=== PATIENT | male | born 1975 | race Caucasian/White ===

== ENCOUNTER 2016-06-14 19:41 | Emergency (ER) | payer BC ==
[2016-06-14 19:54] VITALS: BP 104/77; PULSE 75; RESP 16; TEMP 98.1; O2SAT 96
[2016-06-14] MEDS ORDERED: IBUPROFEN 600 MG TAB PO ONE (20:52)
[2016-06-14] MEDS ORDERED: LET GEL TOPICAL 1 EA SYR TP ONE (20:55)
--- NOTE | 2016-06-14 21:46 | UCPHY ---
H & P Time Seen by Provider: 06/14/16 20:09 Patient Type: Established HPI/ROS: Shortly prior to arrival this patient sustained a finger to his left thumb tip while cutting CABG at home with a skin tip avulsion. He reports a skin flap is "barely hanging on". He reports moderate burning pain from this with moderate study bleeding that did not stop with direct pressure prompting his visit for evaluation. ROS: No difficulty moving the affected thumb. No other injuries associated with this. 5 point ROS is otherwise negative. Smoking Status: Never smoked Physical Exam: Physical Exam Vital signs are normal. General: No acute distress Cardiac: Brisk capillary refill is intact throughout. Skin: No rash or pallor. Extremities: Atraumatic normal except for his left thumb Left thumb: Patient has a 1 cm thumb tip skin avulsion-partial thickness with steady [id number] bleeding with a nonviable skin flap. No proximal wounds. No bony tenderness. No foreign bodies. Neuro: Alert with no sensorimotor deficits in the affected thumb Constitutional: Initial Vital Signs Temperature (C) 36.7 C 06/14/16 19:51 Heart Rate 75 06/14/16 19:51 Respiratory Rate 16 06/14/16 19:51 Blood Pressure 104/77 06/14/16 19:51 O2 Sat (%) 96 06/14/16 19:51 O2 Delivery Mode Room Air Allergies/Adverse Reactions: bacitracin [From Neosporin ([id number])] Allergy (Unverified 06/14/16 21:05) Home Medications: Medication Instructions Recorded NK [No Known Home Meds] 06/14/16 MDM/Departure - MDM Medications Given: Discontinued Medications Ibuprofen (Motrin) 600 mg PO EDNOW ONE Stop: 06/14/16 20:53 Last Admin: 06/14/16 21:03 Dose: 600 mg Tetracaine/Epinephrine/Lidocaine (Let Gel Topical) 1 ea TP EDNOW ONE Stop: 06/14/16 20:56 Last Admin: 06/14/16 21:03 Dose: 1 ea ED Course/Re-evaluation: Our tech attempted wound cleaning without antecedent anesthesia but patient did tolerate this due to pain. He is then treated with let solution with some relief and then tolerated cleaning. Skin flap came off during the cleaning. Been treated with Surgicel dressing. I counseled the patient regarding wound care. - Depart Disposition: Home, Routine, Self-Care Clinical Impression: Finger tip skin avulsion Condition: Good Instructions: Skin Avulsion (ED) Additional Instructions: Diagnosis: Skin avulsion from finger tip of thumb Plan: Keep the dressing in place for the next 2-3 days. Then soak the dressing and half-strength peroxide and warm water gently removing the dressing A thereafter clean daily with warm soapy water and apply a Band-Aid until the wound heals. Return for redness, discharge or other concerns for infection. Referrals: Noe Li MD [Primary Care Provider] - As per Instructions - PQRS PQRS Measurement: NA
== END 2016-06-14 21:50 | disposition home or self-care (01) ==
LOC: CED 19:41
DX: S61.012A Laceration without foreign body of left thumb without damage to nail, initial encounter (principal); W26.0XXA Contact with knife, initial encounter; Y93.G1 Activity, food preparation and clean up; Y92.9 Unspecified place or not applicable; Y99.8 Other external cause status
CPT/HCPCS: 99214-PO; G0463-PO